=== PATIENT | female | born 1985 | race Caucasian/White ===

== ENCOUNTER → 2019-04-09 11:48 | Outpatient (BNVA) | payer MEDICAID, SELFPAY | PROVIDERS: Family Provider Nurse Practitioner Family; PCP Nurse Practitioner; Referring Provider Family Medicine; Visit Provider Otolaryngology | DX: H93.93 Unspecified disorder of ear, bilateral (principal); F17.210 Nicotine dependence, cigarettes, uncomplicated | CPT/HCPCS: 99203; 99214 ==

== ENCOUNTER 2019-04-19 15:45 | Emergency (ER) | payer SELFPAY ==
[2019-04-19 15:47] VITALS: BP 145/58; PULSE 86; RESP 16; TEMP 36.8; O2SAT 98; BMI 30.2
--- NOTE | 2019-04-19 15:56 | ED_ITS ---
Entered by Lissa Coello, acting as scribe for Staci Fay MD, [facility] [place] HPI - Ear Problem General: Chief complaint: Ear Stated complaint: Earache Time Seen by Provider: 04/19/19 15:55 Source: patient Mode of arrival: ambulatory Limitations: no limitations History of Present Illness: HPI Narrative: 34 yo Female presents to ED with complaint of ear pain. Pt states that she was seen recently because she has a hole in her right ear drum. Pt states that today she felt a pop in her left ear and felt like there was drainage. Pt states that her anglican is sore from the pain. No fever, no ear drainage. She recently saw the welt cutter for right ear pain and right otitis media. He is currently in the process of evaluating her and working her up. The pain today is in the other ear. Complaint: ear pain Location: left ear Duration: constant Severity: severe Relieving factors: nothing Exacerbating factors: nothing Discharge from ear: no Associated symptoms: Reports ear or mastoid pain Treatment prior to arrival: none Review of Systems General: Reports: 10 or more systems reviewed and unremarkable except in HPI and below ENMT: Reports: ear pain PFSH ED PFSH: Statuses (acute, chronic, etc) shown below reflect problem list status a s previously entered and may not be historically accurate Social History Smoking and tobacco status: current every day smoker cigarettes Alcohol intake: former Female Reproductive History: Date of last menstrual period: 04/13/19 Physical Exam Const: COMMON NORMALS: no apparent distress, average body habitus, oriented x3, no limitations, healthy appearing, alert and well nourished HENMT: COMMON NORMALS: normocephalic, head/scalp atraumatic, hearing grossly normal bilaterally, external ears normal, EAC's normal, external nose normal, nasal mucous membranes and turbinates normal, moist oral mucous membranes, oropharynx normal, dentition normal and gingiva normal HEAD & SCALP: normocephalic, atraumatic and temporal artery tenderness left NOSE: external nose normal and nasal mucous membranes and turbinates normal EXTERNAL EAR: Yes external ears normal EXTERNAL AUDITORY CANAL: EAC's normal TYMPANIC MEMBRANE: TM abnormal (clear fluid in the middle ear. No pus or bulging TM) TM laterality: left Eye: COMMON NORMALS: PERRL, EOMs intact bilaterally, conjunctivae normal, no scleral icterus, no papilledema, normal visual lowery by confrontation and fundi normal bilaterally CONJUNCTIVA: Yes conjunctivae normal PUPIL: Yes PERRL DIRECT OPHTHALMOSCOPY: Yes no papilledema and Yes fundi normal bilaterally Neck/C-Spine: COMMON NORMALS: full ROM, supple, no meningeal signs, no JVD and no carotid bruits Chest: COMMONS NORMALS: inspection of chest normal and palpation of chest normal Resp: COMMON NORMALS: normal respiratory effort, no retractions, no use of accessory muscles, clear to auscultation bilaterally and percussion normal AUSCULTATION: clear to auscultation bilaterally PERCUSSION: percussion normal Cardio: COMMON NORMALS: no JVD, regular rate, regular rhythm, S1 normal heart sound, S2 normal heart sound, no gallops, no clicks, no murmurs, no rub and peripheral pulses 2+ throughout RATE: regular rate RHYTHM: regular rhythm HEART SOUNDS: S1 normal and S2 normal PERIPHERAL PULSES: pulses 2+ throughout GI: COMMON NORMALS: normal to inspection, nondistended, normoactive bowel sounds, soft to palpation, non-tender, no hepatosplenomegaly, no masses and no bruits PALPATION: Yes soft and Yes no hepatosplenomegaly : COMMON NORMALS: Yes no CVA tenderness BLADDER/KIDNEY EXAM: Yes no CVA tenderness Back/Pelvis: COMMON NORMALS: no CVA tenderness Extremity: COMMON NORMALS: normal to inspection, full ROM, normal capillary refill, no joint enlargement, no clubbing, cyanosis or edema, no calf tenderness and no pedal edema Neuro: COMMON NORMALS: oriented x3 SENSORIUM/ORIENTATION: Yes alert MENINGEAL SIGNS: Yes no meningeal signs Skin: COMMON NORMALS: no rashes or lesions noted, no wounds, skin turgor normal, no jaundice, no petechiae and no mottling GENERAL SKIN EXAM: no rashes or lesions noted and turgor normal Course Vital Signs: Vital signs: Vital Signs Temperature 98.2 F 04/19/19 15:47 Pulse Rate 86 04/19/19 15:47 Respiratory Rate 16 04/19/19 15:47 Blood Pressure 145/58 04/19/19 15:47 Pulse Oximetry 98 01/12/20 15:47 MDM - Ear MDM Narrative: Medical decision making narrative: Patient with clinical features of temporal arteritis on the left. After I discussed potential diagnosis with her she informed me that she has had that in the past and was referred to get a temporal artery biopsy but the patient declined a biopsy since she did not want to hear shaved. She said she will follow-up for biopsy at this time. Differential Diagnosis: Ear Differential Diagnosis: Likely otitis externa, otitis media and cerumen impaction Medical Records: Attestation: I reviewed the patient's medical records. Discharge Plan Discharge Patient Disposition: Home, Self-Care Clinical Impression: Temporal arteritis Otitis media Qualifiers: Otitis media type: serous Chronicity: acute Laterality: left Recurrence: not specified as recurrent Qualified Code(s): H65.02 - Acute serous otitis media, left ear Condition: Stable Prescriptions: New prednisone 20 mg tablet 60 mg PO DAILY 7 Days Qty: 21 RF: 0 prednisone 20 mg tablet 40 mg PO DAILY 7 Days Qty: 14 RF: 0 Claritin-D 12 Hour 5-120 mg tablet extended release 12 hr 1 tab PO BID Qty: 6 RF: 0 Continued escitalopram oxalate [Lexapro] 20 mg tablet 20 mg PO DAILY RF: 0 buspirone 15 mg tablet 15 mg PO DAILY RF: 0 Ciprodex 0.3-0.1 % drops,suspension 4 drop EAR-BOTH BID RF: 0 tramadol 50 mg tablet 50 mg PO Q6H PRNRF: 0 Discharge Orders: Discharge Order (Routine); Ordered 04/19/19 Ordered By: Staci Fay Referrals: Tamika Lockett APN [Family Provider] - 1-3 days Christiano Somers FNP-C [Primary Care Provider] - 1-3 days Activity Restrictions/Additional Instructions: Return for any new or worsening symptoms. Follow-up with your primary care provider within 3 days. You may need to have more steroids prescribed so that you can gradually reduce the dose of the steroids after the second week. Follow-up as ordered for a biopsy of your temporal artery. Coding Level of Care Code ED Food Assembler for Chg Fwvíctor The documentation recorded by the Oumou butler Carmen, accurately reflects the service I personally performed and the decisions made by Nya peraza Adegoke I, MD, [facility] [place] Apr 19, 2019 15:45
== END 2019-04-19 16:27 | disposition home or self-care (01) ==
PROVIDERS: Emergency Provider Family Medicine; Family Provider Nurse Practitioner Family; PCP Nurse Practitioner
DX: M31.6 Other giant cell arteritis (principal); H65.02 Acute serous otitis media, left ear; F17.210 Nicotine dependence, cigarettes, uncomplicated
CPT/HCPCS: 99281

== ENCOUNTER → 2019-05-28 13:11 | Outpatient (BNVA) | payer MEDICAID, SELFPAY | PROVIDERS: PCP Nurse Practitioner; Visit Provider Specialist | DX: G43.109 Migraine with aura, not intractable, without status migrainosus (principal); F17.210 Nicotine dependence, cigarettes, uncomplicated | CPT/HCPCS: 99204; 99214 ==

== ENCOUNTER → 2019-06-16 16:53 | Outpatient (BNVA) | payer MEDICAID, SELFPAY | PROVIDERS: PCP Nurse Practitioner Family; Visit Provider Nurse Practitioner | DX: F41.9 Anxiety disorder, unspecified (principal); G47.00 Insomnia, unspecified; G43.711 Chronic migraine without aura, intractable, with status migrainosus; F32.9 Major depressive disorder, single episode, unspecified; E55.9 Vitamin D deficiency, unspecified | CPT/HCPCS: 80053; 82306; 82607; 84443; 85025 ==

== ENCOUNTER → 2020-09-01 14:21 | Outpatient (BNVA) | payer OTHER, SELFPAY | PROVIDERS: PCP Nurse Practitioner Family; Visit Provider Nurse Practitioner | DX: F32.9 Major depressive disorder, single episode, unspecified (principal); F41.9 Anxiety disorder, unspecified; G43.711 Chronic migraine without aura, intractable, with status migrainosus; G47.00 Insomnia, unspecified; K59.00 Constipation, unspecified; Z90.49 Acquired absence of other specified parts of digestive tract; H65.90 Unspecified nonsuppurative otitis media, unspecified ear | CPT/HCPCS: 80053; 82306; 82607; 84443 ==